=== PATIENT | male | born 1950 | race African-American/Black ===

== ENCOUNTER 2024-03-10 08:13 | Inpatient (IN) | payer MEDICARE, MEDICAID ==
[~2024-03-10] VITALS: Ht 177.8 cm; Wt 139.3 kg
[~2024-03-10 08:13] MED LIST: AMLO5TAB5 PO; ASPI-1406 PO; CALC-1042 PO; CHOL100046 PO; CLON-493 PO; DIVAL250 PO; FERR-63 PO; FOLI0.8T27 PO; FURO-152 PO; HYDR50TA40 PO; LACT10SO PO; METO-411 PO; METO1TAB24 PO; THIA100T13 PO; TOPUD PO
[2024-03-10 09:40] LABS: CHLORIDE 112 mEq/L (98-107); POTASSIUM 5.7 mEq/L (3.5-5.1); SODIUM 144 mEq/L (136-145)
[2024-03-10 09:41] LABS: CALCIUM 9.5 mg/dL (8.7-10.4); CARBON DIOXIDE 24 mEq/L (21-32)
[2024-03-10 09:46] LABS: CREATININE 2.7 mg/dL (0.6-1.3); GLUCOSE 100 mg/dL (70-105); UREA NITROGEN BLOOD 35 mg/dL (9-23)
[2024-03-10 09:47] LABS: HEMATOCRIT. 31.4 % (42.0-52.0); HEMOGLOBIN. 9.6 g/dL (14.0-18.0); MEAN CORPUSCULAR HEMOGLOBIN 28.2 pg (28.0-32.0); MEAN CORPUSCULAR HGB CONC 30.6 g/dL (31.0-37.0); MEAN CORPUSCULAR VOLUME 92.1 fL (80.0-94.0); MEAN PLATELET VOLUME 8.7 fl (7.4-10.4); PLATELET 122 x1000/uL (130-400); RED BLOOD CELL COUNT 3.41 mill/uL (4.7-6.1); RED CELL DISTRIBUTION WIDTH 18.8 % (11.6-14.6); WHITE BLOOD COUNT 4.1 x1000/uL (4.5-11.0)
[2024-03-10 09:55] LABS: TROPONIN I HIGH SENSITIVITY 1770 ng/L (3.0-53)
[2024-03-10 09:57] LABS: DIFFERENTIAL COMMENT 1
[2024-03-10] MEDS: CALCIUM CHLORIDE 1GM/10ML SYR IV ONE (10:11)
[2024-03-10] MEDS: SODIUM BICARBONATE 8.4% 50MEQ/50ML SYR IV ONE (10:19)
[2024-03-10 10:30] VITALS: PULSE 84; RESP 18; O2SAT 96
[2024-03-10] MEDS ORDERED: MAGNESIUM/ALUMINUM HYDROXIDE/SIMETHICONE 30ML UDC PO PRN (10:30)
[2024-03-10] MEDS ORDERED: CLONIDINE 0.1MG TABLET PO PRN (10:30)
[2024-03-10] MEDS ORDERED: ONDANSETRON HCL 4MG/2ML INJ IV PRN (10:30)
[2024-03-10] MEDS ORDERED: GUAIFENESIN 200MG/10ML SUGAR FREE UDC PO PRN (10:30)
[2024-03-10] MEDS ORDERED: ACETAMINOPHEN 325MG TABLET PO PRN (10:30)
[2024-03-10] MEDS ORDERED: IPRATROPIUM/ALBUTEROL 0.5-3(2.5)MG/3ML NEB HHN PRN (10:30)
[2024-03-10] MEDS: ALBUTEROL (0.083%) 2.5MG/3ML NEB HHN ONE (10:31)
[2024-03-10] MEDS ORDERED: PANTOPRAZOLE SODIUM 40 MG/VIAL IV SCH (11:00)
[2024-03-10 11:16] LABS: PHOSPHORUS 4.3 mg/dL (2.5-4.9)
[2024-03-10] MEDS: DEXTROSE 50% WATER 50ML SYRINGE IV ONE (11:17)
[2024-03-10] MEDS: INSULIN REGULAR (HUMULIN R) 1000UNITS/10ML VIAL IV ONE (11:23)
[2024-03-10 11:28] LABS: LACTIC ACID 2.1 mmol/L (0.4-2.0)
[2024-03-10 11:37] LABS: ANISOCYTOSIS 2+; NUCLEATED RED BLOOD CELLS 1 /100 WBC; PLATELET ESTIMATE NORMAL
[2024-03-10] MEDS: MORPHINE SULFATE 4 MG/ML INJ (FOR IV/IM USE) IV ONE (11:53)
[2024-03-10] MEDS: FUROSEMIDE 100MG/10ML VIAL IV STA (11:57)
[2024-03-10] MEDS: CEFTRIAXONE 1GM/50ML 50 ML IV SCH (12:11)
[2024-03-10] MEDS: ENOXAPARIN 80MG/0.8ML SYR SUBCUT ONE (12:11)
[2024-03-10 12:34] LABS: POTASSIUM 5.4 mEq/L (3.5-5.1)
[2024-03-10 12:44] LABS: BG BASE EXCESS -5.5 mmol/L (-2.0-3.0); BG CARBOXYHEMOGLOBIN 1.3 % (0.5-1.5); BG DEOXYHEMOGLOBIN 12.4 % (0.0-5.0); BG FRACTION INSPIRED OXYGEN 40; BG HCO3 ACT 22.4 mmol/L (21.0-28.0); BG METHEMOGLOBIN 0.3 % (0.5-1.5); BG OXYGEN SATURATION 87.4 % (94.0-98.0); BG PCO2 56.1 mmHg (35.0-48.0); BG PH 7.219 (7.350-7.450); BG SAMPLE SITE RIGHT RADIAL; BG VENT MODE NASAL CANNULA
[2024-03-10] MEDS: DOXYCYCLINE 100MG/100ML 100 ML IV SCH (13:04)
[2024-03-10] MEDS: IPRATROPIUM/ALBUTEROL 0.5-3(2.5)MG/3ML NEB HHN SCH (14:09)
[2024-03-10] MEDS: BUDESONIDE 0.5MG/2ML NEB HHN SCH (14:10)
[2024-03-10] MEDS: DEXT 5%/0.45% NACL 1000ML 1,000 ML IV ONE (14:19)
[2024-03-10 20:00] VITALS: BP 135/47; PULSE 50; RESP 20; TEMP 35.78064; O2SAT 92
[2024-03-11] VITALS (62 sets, daily range): BP systolic 60–156; BP diastolic 35–98; PULSE 44–86; RESP 12–28; TEMP 35.78064–37.0296; O2SAT 91–99
[2024-03-11] MEDS: FAMOTIDINE 20MG/2ML VIAL IV SCH (08:18)
[2024-03-11] MEDS: DOXYCYCLINE 100MG/100ML 100 ML IV SCH (08:29)
[2024-03-11 10:04] LABS: HEMATOCRIT. 32.6 % (42.0-52.0); HEMOGLOBIN. 9.7 g/dL (14.0-18.0); MEAN CORPUSCULAR HEMOGLOBIN 27.7 pg (28.0-32.0); MEAN CORPUSCULAR HGB CONC 29.8 g/dL (31.0-37.0); MEAN CORPUSCULAR VOLUME 92.8 fL (80.0-94.0); MEAN PLATELET VOLUME 9.1 fl (7.4-10.4); PLATELET 102 x1000/uL (130-400); RED BLOOD CELL COUNT 3.51 mill/uL (4.7-6.1); RED CELL DISTRIBUTION WIDTH 18.8 % (11.6-14.6)
[2024-03-11 10:09] LABS: CARBON DIOXIDE 17 mEq/L (21-32); CHLORIDE 113 mEq/L (98-107); POTASSIUM 4.1 mEq/L (3.5-5.1); SODIUM 145 mEq/L (136-145)
[2024-03-11 10:10] LABS: CALCIUM 9.9 mg/dL (8.7-10.4)
[2024-03-11 10:14] LABS: GLUCOSE 164 mg/dL (70-105); IRON 56 ug/dL (65-175)
[2024-03-11 10:15] LABS: LDL CHOLESTEROL 35 mg/dL (5-100); TRIGLYCERIDE 42 mg/dL (0-150); UREA NITROGEN BLOOD 38 mg/dL (9-23)
[2024-03-11 10:16] LABS: CHOLESTEROL 114 mg/dL (<200); HDL CHOLESTEROL 58 mg/dL (>55)
[2024-03-11 10:17] LABS: TOTAL IRON BINDING CAPACITY 497 ug/dl (250-425)
[2024-03-11 10:19] LABS: CREATININE 3.6 mg/dL (0.6-1.3); T4 FREE 1.29 ng/dL (0.89-1.76); THYROID STIMULATING HORMONE 1.58 uIU/mL (0.55-4.78)
[2024-03-11 10:24] LABS: TROPONIN I HIGH SENSITIVITY 1442 ng/L (3.0-53)
[2024-03-11] MEDS: LACTATED RINGERS 500 ML IV ONE (10:26)
[2024-03-11 10:29] LABS: DIFFERENTIAL COMMENT 1
[2024-03-11] MEDS ORDERED: CEFTRIAXONE 1GM/50ML 50 ML IV SCH (10:30)
[2024-03-11] MEDS ORDERED: SODIUM CHLORIDE 10% FOR INH 15ML NEB INH NR (11:00)
[2024-03-11 11:36] LABS: FOLIC ACID (FOLATE) SERUM 14.44 ng/mL (>5.38); VITAMIN B12 SERUM 1061 pg/mL (211-911)
[2024-03-11 11:37] LABS: FERRITIN 124 ng/mL (22-322)
[2024-03-11] MEDS: LACTATED RINGERS 1,000 ML IV SCH (12:13)
[2024-03-11] MEDS: MEROPENEM 1G/100ML 100 ML IV SCH (12:13)
[2024-03-11 12:31] LABS: LACTIC ACID 8.3 mmol/L (0.4-2.0)
[2024-03-11] MEDS ORDERED: SODIUM CHLORIDE 0.9% 1,000 ML IV ONE ×2 (12:35→12:45)
[2024-03-11 13:18] LABS: BG BASE EXCESS -13.7 mmol/L (-2.0-3.0); BG CARBOXYHEMOGLOBIN 0.2 % (0.5-1.5); BG DEOXYHEMOGLOBIN 3.7 % (0.0-5.0); BG FRACTION INSPIRED OXYGEN 40; BG HCO3 ACT 15.1 mmol/L (21.0-28.0); BG METHEMOGLOBIN 0.3 % (0.5-1.5); BG OXYGEN SATURATION 96.3 % (94.0-98.0); BG OXYHEMOGLOBIN 95.8 % (94.0-98.0); BG PCO2 47.4 mmHg (35.0-48.0); BG PH 7.122 (7.350-7.450); BG PO2 98.7 mmHg (83.0-108.0); BG SAMPLE SITE RIGHT RADIAL; BG TOTAL HEMOGLOBIN 10.7 g/dL (13.5-17.5); BG VENT MODE MASK - VENTI
[2024-03-11] MEDS: FUROSEMIDE 40MG/4ML VIAL IVP NR (13:59)
[2024-03-11] MEDS: SODIUM BICARBONATE 8.4% 50MEQ/50ML SYR IV NR (13:59)
[2024-03-11] MEDS: METHYLPREDNISOLONE SOD SUCC 125MG/2ML (ACT-O-VIAL) IV NR (13:59)
[2024-03-11] MEDS: NOREPINEPHRINE 32 MG in DEXT 5% WATER 218 ML IV PRN (14:00)
[2024-03-11] MEDS: VANCOMYCIN 1.5GM PMX (XELLIA) 300 ML IV NR (14:01)
[2024-03-11] MEDS: SODIUM BICARBONATE 150 MEQ in DEXTROSE 5% WATER 850 ML IV SCH (14:30)
[2024-03-11] MEDS ORDERED: AMIODARONE HCL 900 MG in DEXT 5% WATER 482 ML IV SCH (15:30)
[2024-03-11] MEDS: AMIODARONE 150MG/100ML D5W 100 ML IV NR (15:41)
[2024-03-11] MEDS: AMIODARONE 360MG/200ML 200 ML IV PRN (16:00)
[2024-03-11] MEDS: ACETYLCYSTEINE 200MG/ML 20% VIAL 4ML INH SCH (16:02)
[2024-03-11 16:11] LABS: ANISOCYTOSIS 1+; NUCLEATED RED BLOOD CELLS 1 /100 WBC; PLATELET ESTIMATE DECREASED
[2024-03-11] MEDS: MAGNESIUM 2 G PREMIX 50 ML IV NR (18:13)
[2024-03-11] MEDS: PROPOFOL 10MG/ML 100ML 100 ML IV SCH (18:14)
[2024-03-11 18:56] LABS: INR 1.1; PROTHROMBIN TIME 11.7 sec (9.6-11.0)
[2024-03-11] MEDS: HEPARIN 5000 UNITS/ML VIAL IV NR (23:41)
[2024-03-11] MEDS: HEPARIN 25,000 UNITS PREMIX 250 ML IV PRN (23:48)
[2024-03-12] VITALS (89 sets, daily range): BP systolic 63–149; BP diastolic 41–73; PULSE 53–113; RESP 13–39; TEMP 30.16908–37.28076; O2SAT 92–100
[2024-03-12 00:16] LABS: HEMATOCRIT. 33.7 % (42.0-52.0); HEMOGLOBIN. 10.4 g/dL (14.0-18.0); MEAN CORPUSCULAR HEMOGLOBIN 28.3 pg (28.0-32.0); MEAN CORPUSCULAR VOLUME 91.4 fL (80.0-94.0); MEAN PLATELET VOLUME 8.6 fl (7.4-10.4); PLATELET 104 x1000/uL (130-400); RED BLOOD CELL COUNT 3.69 mill/uL (4.7-6.1); RED CELL DISTRIBUTION WIDTH 19.2 % (11.6-14.6); WHITE BLOOD COUNT 3.9 x1000/uL (4.5-11.0)
[2024-03-12 00:20] LABS: DIFFERENTIAL COMMENT 1
[2024-03-12 01:45] LABS: INR 1.1; PROTHROMBIN TIME 12.4 sec (9.6-11.0)
[2024-03-12 02:29] LABS: PARTIAL THROMBOPLASTIN TIME > 200.0 sec (23.4-31.0)
[2024-03-12] MEDS ORDERED: HEPARIN 5000 UNITS/ML VIAL IV PRN ×2 (03:00)
[2024-03-12 04:50] LABS: BG BASE EXCESS -7.4 mmol/L (-2.0-3.0); BG CARBOXYHEMOGLOBIN 0.3 % (0.5-1.5); BG DEOXYHEMOGLOBIN 2.4 % (0.0-5.0); BG FRACTION INSPIRED OXYGEN 80; BG HCO3 ACT 19.4 mmol/L (21.0-28.0); BG METHEMOGLOBIN 0.3 % (0.5-1.5); BG OXYGEN SATURATION 97.6 % (94.0-98.0); BG PCO2 44.3 mmHg (35.0-48.0); BG PO2 98.4 mmHg (83.0-108.0); BG SAMPLE SITE RIGHT RADIAL; BG TOTAL RESPIRATORY RATE 16 b/min; BG VENT MODE VENT - AC
[2024-03-12 05:15] LABS: NUCLEATED RED BLOOD CELLS 3 /100 WBC
[2024-03-12 05:16] LABS: PLATELET ESTIMATE SLIGHTL
[2024-03-12 06:15] LABS: LACTIC ACID 4.7 mmol/L (0.4-2.0)
[2024-03-12 06:17] LABS: HEMATOCRIT. 32.2 % (42.0-52.0); HEMOGLOBIN. 10.3 g/dL (14.0-18.0); MEAN CORPUSCULAR HGB CONC 31.8 g/dL (31.0-37.0); MEAN CORPUSCULAR VOLUME 91.1 fL (80.0-94.0); PLATELET 113 x1000/uL (130-400); RED BLOOD CELL COUNT 3.54 mill/uL (4.7-6.1); RED CELL DISTRIBUTION WIDTH 19.3 % (11.6-14.6)
[2024-03-12 06:28] LABS: CALCIUM 9.3 mg/dL (8.7-10.4)
[2024-03-12 06:32] LABS: DIFFERENTIAL COMMENT 1
[2024-03-12 06:33] LABS: CREATININE 3.8 mg/dL (0.6-1.3)
[2024-03-12] MEDS: METHYLPREDNISOLONE SOD SUCC 125MG/2ML (ACT-O-VIAL) IV SCH (06:45)
[2024-03-12 08:29] LABS: PHOSPHORUS 4.9 mg/dL (2.5-4.9)
[2024-03-12] MEDS: SODIUM CHLORIDE 0.9% 1,000 ML IV SCH (10:00)
[2024-03-12] MEDS: DOPAMINE 400MG/250ML PREMIX 250 ML IV PRN (11:25)
[2024-03-12 13:24] LABS: CLARITY URINE TURBID (CLEAR); COLOR URINE DARK YELLOW (YELLOW); GLUCOSE URINE NEGATIVE (NEGATIVE); KETONES URINE TRACE (NEGATIVE); LEUKOCYTE ESTERASE URINE NEGATIVE (NEGATIVE); NITRITE URINE NEGATIVE (NEGATIVE); OCCULT BLOOD URINE 3+ (NEGATIVE); PROTEIN URINE 2+ (NEGATIVE); SPECIFIC GRAVITY URINE 1.025 (1.005-1.030)
[2024-03-12 13:45] LABS: RBC URINE TNTC /hpf (0-2); SQUAMOUS EPITHELIAL CELL URINE 1+ /lpf (RARE/1+)
[2024-03-12 13:46] LABS: BACTERIA URINE 2+; WBC URINE 0-2 /hpf (0-2)
[2024-03-12] MEDS: VANCOMYCIN 750MG PMX (XELLIA) 150 ML IV SCH (16:30)
[2024-03-12] MEDS ORDERED: PHENYLEPHRINE 50MG/250ML PMX 250 ML IV PRN (21:00)
[2024-03-12] MEDS ORDERED: FENTANYL 2500MCG/250ML PMX 250 ML IV PRN (21:30)
[2024-03-12 21:43] LABS: BG BASE EXCESS -7.4 mmol/L (-2.0-3.0); BG CARBOXYHEMOGLOBIN 0.3 % (0.5-1.5); BG DEOXYHEMOGLOBIN 25.3 % (0.0-5.0); BG HCO3 ACT 20.2 mmol/L (21.0-28.0); BG METHEMOGLOBIN 0.5 % (0.5-1.5); BG OXYGEN SATURATION 74.5 % (94.0-98.0); BG OXYHEMOGLOBIN 73.9 % (94.0-98.0); BG PCO2 51.7 mmHg (35.0-48.0); BG PO2 42.8 mmHg (83.0-108.0); BG SAMPLE SITE ALINE; BG TOTAL HEMOGLOBIN 9.1 g/dL (13.5-17.5)
[2024-03-12] MEDS ORDERED: METHYLPREDNISOLONE SOD SUCC 40MG/ML (ACT-O-VIAL) IV SCH (22:00)
[2024-03-12] MEDS: HYDROCORTISONE SOD SUCCINATE 100 MG/2 ML VIAL IV SCH (22:06)
[2024-03-12] MEDS: PROPOFOL 10MG/ML 100ML 100 ML IV PRN (22:07)
[2024-03-12] MEDS: FENTANYL CITRATE 2,500 MCG in SODIUM CHLORIDE 0.9% 200 ML IV PRN (22:38)
[2024-03-12] MEDS: PHENYLEPHRINE 50 MG in DEXTROSE 5% WATER 250 ML IV PRN (22:38)
[2024-03-12 23:56] LABS: CHLORIDE 104 mEq/L (98-107); SODIUM 136 mEq/L (136-145)
[2024-03-12 23:57] LABS: CALCIUM 8.2 mg/dL (8.7-10.4); CARBON DIOXIDE 22 mEq/L (21-32)
[2024-03-12 23:59] LABS: HEMATOCRIT. 26.3 % (42.0-52.0); HEMOGLOBIN. 8.4 g/dL (14.0-18.0); MEAN CORPUSCULAR HEMOGLOBIN 28.5 pg (28.0-32.0); MEAN CORPUSCULAR HGB CONC 31.9 g/dL (31.0-37.0); MEAN CORPUSCULAR VOLUME 89.3 fL (80.0-94.0); MEAN PLATELET VOLUME 9.6 fl (7.4-10.4); PLATELET 112 x1000/uL (130-400); RED BLOOD CELL COUNT 2.94 mill/uL (4.7-6.1); RED CELL DISTRIBUTION WIDTH 18.8 % (11.6-14.6); WHITE BLOOD COUNT 13.3 x1000/uL (4.5-11.0)
[2024-03-13] VITALS (97 sets, daily range): BP systolic 71–171; BP diastolic 46–78; PULSE 63–127; RESP 13–32; TEMP 36.22512–37.7808; O2SAT 92–100
[2024-03-13] MEDS: EPINEPHRINE 10 MG in SODIUM CHLORIDE 0.9% 240 ML IV PRN
[2024-03-13] MEDS: VASOPRESSIN 20 UNIT in SODIUM CHLORIDE 0.9% 99 ML IV PRN
[2024-03-13 00:02] LABS: CREATININE 4.8 mg/dL (0.6-1.3); UREA NITROGEN BLOOD 57 mg/dL (9-23)
[2024-03-13 00:04] LABS: ALANINE AMINOTRANSFERASE 41 IU/L (10-49); ALBUMIN 3.1 g/dL (3.2-4.8); ASPARTATE AMINOTRANSFERASE 36 IU/L (<34); BILIRUBIN TOTAL 0.3 mg/dL (0.1-1.0)
[2024-03-13 00:19] LABS: DIFFERENTIAL COMMENT 1
[2024-03-13 00:33] LABS: POTASSIUM 6.6 mEq/L (3.5-5.1)
[2024-03-13 00:35] LABS: GLUCOSE 146 mg/dL (70-105)
[2024-03-13 00:40] LABS: PROTEIN TOTAL 5.9 g/dL (6.0-8.3)
[2024-03-13 01:25] LABS: BG BASE EXCESS -9.2 mmol/L (-2.0-3.0); BG CARBOXYHEMOGLOBIN 0.6 % (0.5-1.5); BG DEOXYHEMOGLOBIN 10.1 % (0.0-5.0); BG FRACTION INSPIRED OXYGEN 60; BG HCO3 ACT 19.8 mmol/L (21.0-28.0); BG METHEMOGLOBIN 0.4 % (0.5-1.5); BG OXYGEN SATURATION 89.8 % (94.0-98.0); BG OXYHEMOGLOBIN 88.9 % (94.0-98.0); BG PCO2 62.2 mmHg (35.0-48.0); BG PH 7.121 (7.350-7.450); BG SAMPLE SITE ALINE; BG TOTAL HEMOGLOBIN 7.9 g/dL (13.5-17.5); BG VENT MODE VENT - AC
[2024-03-13] MEDS: FUROSEMIDE 100MG/10ML VIAL IVP NR (02:02)
[2024-03-13] MEDS: ROCURONIUM BROMIDE 10MG/ML VIAL 5ML IV NR (02:02)
[2024-03-13] MEDS: SODIUM BICARBONATE 8.4% 50MEQ/50ML SYR IV NR ×2 (02:02→02:03)
[2024-03-13] MEDS: INSULIN REGULAR (HUMULIN R) 1000UNITS/10ML VIAL IV NR (02:04)
[2024-03-13] MEDS: DEXTROSE 50% WATER 50ML SYRINGE IV NR (02:25)
[2024-03-13] MEDS: SODIUM POLYSTYRENE SULFONATE 15 G/60 ML BOT PO NR (02:26)
[2024-03-13] MEDS ORDERED: DEXTROSE 50% WATER 50ML SYRINGE IV PRN (02:45)
[2024-03-13] MEDS: INSULIN LISPRO 100 UNITS/ML SUBCUT SCH ×2 (03:01→12:00)
[2024-03-13 06:08] LABS: CHLORIDE 104 mEq/L (98-107); POTASSIUM 5.2 mEq/L (3.5-5.1); SODIUM 139 mEq/L (136-145)
[2024-03-13 06:09] LABS: CALCIUM 7.8 mg/dL (8.7-10.4); CARBON DIOXIDE 19 mEq/L (21-32)
[2024-03-13 06:14] LABS: GLUCOSE 132 mg/dL (70-105); TRIGLYCERIDE 292 mg/dL (0-150); UREA NITROGEN BLOOD 61 mg/dL (9-23)
[2024-03-13 06:15] LABS: BG BASE EXCESS -7.2 mmol/L (-2.0-3.0); BG CARBOXYHEMOGLOBIN 0.3 % (0.5-1.5); BG DEOXYHEMOGLOBIN 6.6 % (0.0-5.0); BG FRACTION INSPIRED OXYGEN 60; BG HCO3 ACT 18.6 mmol/L (21.0-28.0); BG METHEMOGLOBIN 0.3 % (0.5-1.5); BG OXYGEN SATURATION 93.4 % (94.0-98.0); BG OXYHEMOGLOBIN 92.8 % (94.0-98.0); BG PCO2 38.7 mmHg (35.0-48.0); BG PO2 65.4 mmHg (83.0-108.0); BG SAMPLE SITE ALINE; BG TOTAL HEMOGLOBIN 9.9 g/dL (13.5-17.5); BG VENT MODE VENT - AC
[2024-03-13 06:16] LABS: ALANINE AMINOTRANSFERASE 35 IU/L (10-49); ALBUMIN 2.9 g/dL (3.2-4.8); ASPARTATE AMINOTRANSFERASE 41 IU/L (<34); BILIRUBIN TOTAL 0.2 mg/dL (0.1-1.0)
[2024-03-13 06:17] LABS: PROTEIN TOTAL 5.4 g/dL (6.0-8.3)
[2024-03-13] MEDS: BLOOD SUGAR DIAGNOSTIC STRIP TEST SCH (06:23)
[2024-03-13] MEDS ORDERED: SODIUM CHLORIDE 0.9% 1,000 ML IV SCH (06:45)
[2024-03-13] MEDS: DOPAMINE 800MG PREMIX (DOUBLE) 250 ML IV PRN (10:49)
[2024-03-13] MEDS ORDERED: LIDOCAINE HCL 1% 10 MG/ML 10ML VIAL ONE (11:33)
[2024-03-13 12:16] LABS: HEPATITIS B SURFACE ANTIGEN NEGATIVE (Negative)
[2024-03-13 12:36] LABS: HEPATITIS A AB IGM NEGATIVE (Negative)
[2024-03-13 12:37] LABS: HEPATITIS B CORE AB IGM NEGATIVE (Negative); HEPATITIS C AB NON REACTIVE (Neg) (Negative)
[2024-03-13] MEDS: DEXT 5%/0.45% NACL 1000ML 1,000 ML IV SCH (14:10)
[2024-03-13 16:08] LABS: PLATELET ESTIMATE SLIGHTLY DECREASED
[2024-03-13 18:11] LABS: ANISOCYTOSIS 1+; PLATELET ESTIMATE DECREASED
[2024-03-13 18:12] LABS: HYPOCHROMASIA 1+
[2024-03-13] MEDS ORDERED: ATROPINE SULFATE 1MG/10ML SYR IV PRN (19:45)
[2024-03-13] MEDS: PROPOFOL 10MG/ML 100ML 100 ML IV PRN (21:23)
[2024-03-13] MEDS: MEROPENEM 500MG/50ML IV SCH (21:41)
[2024-03-13] MEDS: PANTOPRAZOLE SODIUM 40 MG/VIAL IV SCH (21:41)
[2024-03-14] VITALS (100 sets, daily range): BP systolic 110–136; BP diastolic 66–84; PULSE 53–110; RESP 8–37; TEMP 35.61396–37.44744; O2SAT 95–100
[2024-03-14 06:01] LABS: BG BASE EXCESS -3.8 mmol/L (-2.0-3.0); BG CARBOXYHEMOGLOBIN 0.3 % (0.5-1.5); BG DEOXYHEMOGLOBIN 8.1 % (0.0-5.0); BG FRACTION INSPIRED OXYGEN 60; BG HCO3 ACT 19.6 mmol/L (21.0-28.0); BG METHEMOGLOBIN 0.3 % (0.5-1.5); BG OXYGEN SATURATION 91.9 % (94.0-98.0); BG OXYHEMOGLOBIN 91.3 % (94.0-98.0); BG PCO2 28.9 mmHg (35.0-48.0); BG PH 7.449 (7.350-7.450); BG PO2 62.7 mmHg (83.0-108.0); BG SAMPLE SITE ALINE; BG TOTAL HEMOGLOBIN 7.6 g/dL (13.5-17.5); BG VENT MODE VENT - AC
[2024-03-14 06:08] LABS: MEAN CORPUSCULAR HEMOGLOBIN 28.4 pg (28.0-32.0); MEAN CORPUSCULAR HGB CONC 32.9 g/dL (31.0-37.0); MEAN CORPUSCULAR VOLUME 86.5 fL (80.0-94.0); MEAN PLATELET VOLUME 9.3 fl (7.4-10.4); PLATELET 76 x1000/uL (130-400); RED BLOOD CELL COUNT 2.35 mill/uL (4.7-6.1); WHITE BLOOD COUNT 12.4 x1000/uL (4.5-11.0)
[2024-03-14 06:10] LABS: CARBON DIOXIDE 22 mEq/L (21-32); CHLORIDE 100 mEq/L (98-107); POTASSIUM 5.8 mEq/L (3.5-5.1); SODIUM 132 mEq/L (136-145)
[2024-03-14 06:16] LABS: CREATININE 4.8 mg/dL (0.6-1.3); GLUCOSE 181 mg/dL (70-105); TRIGLYCERIDE 161 mg/dL (0-150); UREA NITROGEN BLOOD 61 mg/dL (9-23)
[2024-03-14 06:17] LABS: ALANINE AMINOTRANSFERASE 31 IU/L (10-49)
[2024-03-14 06:18] LABS: ALBUMIN 2.9 g/dL (3.2-4.8); ASPARTATE AMINOTRANSFERASE 43 IU/L (<34); BILIRUBIN TOTAL 0.4 mg/dL (0.1-1.0); PHOSPHORUS 5.6 mg/dL (2.5-4.9); PROTEIN TOTAL 5.3 g/dL (6.0-8.3)
[2024-03-14 06:48] LABS: HEMOGLOBIN. 6.7 g/dL (14.0-18.0)
[2024-03-14 06:50] LABS: DIFFERENTIAL COMMENT 1; HEMATOCRIT. 20.3 % (42.0-52.0)
[2024-03-14] MEDS: LANTHANUM CARBONATE 500MG CHEW TABLET PO SCH (07:06)
[2024-03-14 09:41] LABS: POTASSIUM 4.1 mEq/L (3.5-5.1)
[2024-03-14 10:18] LABS: CREATININE 3.2 mg/dL (0.6-1.3)
[2024-03-14 11:16] LABS: BG BASE EXCESS 0.5 mmol/L (-2.0-3.0); BG CARBOXYHEMOGLOBIN 0.2 % (0.5-1.5); BG DEOXYHEMOGLOBIN 8.7 % (0.0-5.0); BG FRACTION INSPIRED OXYGEN 60; BG HCO3 ACT 24.1 mmol/L (21.0-28.0); BG METHEMOGLOBIN 0.3 % (0.5-1.5); BG OXYGEN SATURATION 91.3 % (94.0-98.0); BG OXYHEMOGLOBIN 90.8 % (94.0-98.0); BG PCO2 33.9 mmHg (35.0-48.0); BG PH 7.469 (7.350-7.450); BG PO2 59.5 mmHg (83.0-108.0); BG SAMPLE SITE ALINE; BG TOTAL HEMOGLOBIN 7.2 g/dL (13.5-17.5); BG TOTAL RESPIRATORY RATE 24 b/min; BG VENT MODE VENT - AC
[2024-03-14] MEDS: PHENYLEPHRINE 100 MG in DEXT 5% WATER 250 ML IV PRN (11:20)
[2024-03-14 13:46] LABS: NUCLEATED RED BLOOD CELLS 2 /100 WBC
[2024-03-14 13:47] LABS: ANISOCYTOSIS 1+; PLATELET ESTIMATE DECREASED
[2024-03-14] MEDS: DEXAMETHASONE 4MG/ML 1ML VIAL IV NR (14:45)
[2024-03-14] MEDS ORDERED: MORPHINE SULFATE 4 MG/ML INJ (FOR IV/IM USE) IV PRN (15:45)
[2024-03-14] MEDS ORDERED: NALOXONE HCL 0.4MG/ML VIAL IV PRN (15:45)
[2024-03-14 18:01] LABS: INR 0.9; PROTHROMBIN TIME 10.5 sec (9.6-11.0)
[2024-03-14] MEDS: LEVETIRACETAM 500MG PREMIX 100ML IV SCH (20:36)
[2024-03-14] MEDS ORDERED: LEVETIRACETAM 500MG in NACL 100ML PREMIX IV SCH (21:00)
[2024-03-14] MEDS: PROPOFOL 10MG/ML 100ML 100 ML IV PRN (21:15)
[2024-03-14] MEDS ORDERED: CEFAZOLIN 1,000 MG in DEXTROSE 5% WATER 50 ML IV SCH (21:30)
[2024-03-14] MEDS ORDERED: CEFAZOLIN SODIUM 1000MG/VIAL IV SCH (22:00)
[2024-03-14 22:23] LABS: HEMATOCRIT 22.2 % (42.0-52.0); HEMOGLOBIN 7.2 g/dL (14.0-18.0)
[2024-03-15] VITALS (105 sets, daily range): PULSE 46–145; RESP 16–23; TEMP 35.5584–36.83628; O2SAT 87–100
[2024-03-15 05:51] LABS: BASOPHILS % 0.3 % (0.0-2.0); EOSINOPHILS % 0.4 % (0.0-5.0); HEMATOCRIT. 23.5 % (42.0-52.0); HEMOGLOBIN. 7.7 g/dL (14.0-18.0); LYMPHOCYTES % 7.9 % (20.0-50.0); MEAN CORPUSCULAR HEMOGLOBIN 28.8 pg (28.0-32.0); MEAN CORPUSCULAR HGB CONC 32.8 g/dL (31.0-37.0); MONOCYTES % 5.2 % (2.0-8.0); NEUTROPHILS % 86.2 % (40.0-76.0); RED BLOOD CELL COUNT 2.67 mill/uL (4.7-6.1); RED CELL DISTRIBUTION WIDTH 17.9 % (11.6-14.6)
[2024-03-15 06:09] LABS: DIFFERENTIAL COMMENT 1
[2024-03-15 06:24] LABS: CHLORIDE 102 mEq/L (98-107); POTASSIUM 5.1 mEq/L (3.5-5.1); SODIUM 135 mEq/L (136-145)
[2024-03-15 06:25] LABS: CALCIUM 8.3 mg/dL (8.7-10.4); CARBON DIOXIDE 23 mEq/L (21-32)
[2024-03-15 06:30] LABS: GLUCOSE 149 mg/dL (70-105)
[2024-03-15 06:31] LABS: TRIGLYCERIDE 112 mg/dL (0-150); UREA NITROGEN BLOOD 59 mg/dL (9-23)
[2024-03-15 06:32] LABS: ALANINE AMINOTRANSFERASE 28 IU/L (10-49); ALBUMIN 2.9 g/dL (3.2-4.8); ASPARTATE AMINOTRANSFERASE 35 IU/L (<34)
[2024-03-15 06:33] LABS: BILIRUBIN TOTAL 0.5 mg/dL (0.1-1.0); PHOSPHORUS 6.3 mg/dL (2.5-4.9); PROTEIN TOTAL 5.4 g/dL (6.0-8.3)
[2024-03-15 07:10] LABS: CREATININE 4.3 mg/dL (0.6-1.3)
[2024-03-15] MEDS ORDERED: LIDOCAINE HCL 1% 10 MG/ML 10ML VIAL ONE (07:25)
[2024-03-15 09:01] LABS: BG BASE EXCESS -4.2 mmol/L (-2.0-3.0); BG DEOXYHEMOGLOBIN 12.4 % (0.0-5.0); BG FRACTION INSPIRED OXYGEN 60; BG HCO3 ACT 20.3 mmol/L (21.0-28.0); BG OXYGEN SATURATION 87.3 % (94.0-98.0); BG OXYHEMOGLOBIN 85.6 % (94.0-98.0); BG PH 7.393 (7.350-7.450); BG PO2 54.8 mmHg (83.0-108.0); BG SAMPLE SITE ALINE; BG TOTAL HEMOGLOBIN 7.6 g/dL (13.5-17.5); BG VENT MODE VENT - AC
[2024-03-15 09:18] LABS: MEAN PLATELET VOLUME 9.1 fl (7.4-10.4); PLATELET 79 x1000/uL (130-400)
[2024-03-15] MEDS: NICARDIPINE 100 MG in SODIUM CHLORIDE 0.9% 60 ML IV PRN (10:56)
[2024-03-15 14:03] LABS: BG BASE EXCESS -4.8 mmol/L (-2.0-3.0); BG CARBOXYHEMOGLOBIN 0.4 % (0.5-1.5); BG DEOXYHEMOGLOBIN 8.4 % (0.0-5.0); BG FRACTION INSPIRED OXYGEN 100; BG HCO3 ACT 20.3 mmol/L (21.0-28.0); BG METHEMOGLOBIN 0.3 % (0.5-1.5); BG OXYGEN SATURATION 91.5 % (94.0-98.0); BG OXYHEMOGLOBIN 90.9 % (94.0-98.0); BG PCO2 37.6 mmHg (35.0-48.0); BG PO2 67.3 mmHg (83.0-108.0); BG SAMPLE SITE ALINE; BG TOTAL HEMOGLOBIN 9.1 g/dL (13.5-17.5); BG VENT MODE VENT - AC
[2024-03-15] MEDS ORDERED: PROPOFOL 10MG/ML 100ML 100 ML IV PRN (21:30)
[2024-03-16] VITALS (102 sets, daily range): BP systolic 116–141; BP diastolic 55–67; PULSE 42–79; RESP 0–23; TEMP 34.66944–36.50292; O2SAT 93–100
[2024-03-16 06:04] LABS: BASOPHILS % 0.2 % (0.0-2.0); HEMATOCRIT. 25.5 % (42.0-52.0); HEMOGLOBIN. 8.5 g/dL (14.0-18.0); LYMPHOCYTES % 9.8 % (20.0-50.0); MEAN CORPUSCULAR HGB CONC 33.2 g/dL (31.0-37.0); MEAN CORPUSCULAR VOLUME 87.4 fL (80.0-94.0); MEAN PLATELET VOLUME 8.4 fl (7.4-10.4); MONOCYTES % 5.2 % (2.0-8.0); NEUTROPHILS % 84.8 % (40.0-76.0); PLATELET 99 x1000/uL (130-400); RED BLOOD CELL COUNT 2.91 mill/uL (4.7-6.1); RED CELL DISTRIBUTION WIDTH 17.3 % (11.6-14.6); WHITE BLOOD COUNT 8.5 x1000/uL (4.5-11.0)
[2024-03-16 06:15] LABS: CHLORIDE 103 mEq/L (98-107); POTASSIUM 4.3 mEq/L (3.5-5.1); SODIUM 136 mEq/L (136-145)
[2024-03-16 06:17] LABS: CARBON DIOXIDE 21 mEq/L (21-32)
[2024-03-16 06:19] LABS: CALCIUM 8.6 mg/dL (8.7-10.4)
[2024-03-16 06:23] LABS: CREATININE 4.6 mg/dL (0.6-1.3); GLUCOSE 174 mg/dL (70-105)
[2024-03-16 06:24] LABS: ALBUMIN 3.2 g/dL (3.2-4.8); TRIGLYCERIDE 58 mg/dL (0-150); UREA NITROGEN BLOOD 74 mg/dL (9-23)
[2024-03-16 06:25] LABS: ALANINE AMINOTRANSFERASE 28 IU/L (10-49)
[2024-03-16 06:26] LABS: ASPARTATE AMINOTRANSFERASE 27 IU/L (<34); BILIRUBIN TOTAL 0.6 mg/dL (0.1-1.0); PHOSPHORUS 6.6 mg/dL (2.5-4.9); PROTEIN TOTAL 5.6 g/dL (6.0-8.3)
[2024-03-16 06:31] LABS: DIFFERENTIAL COMMENT 1
[2024-03-16 09:44] LABS: BG BASE EXCESS -4.6 mmol/L (-2.0-3.0); BG CARBOXYHEMOGLOBIN 0.3 % (0.5-1.5); BG FRACTION INSPIRED OXYGEN 80; BG HCO3 ACT 19.9 mmol/L (21.0-28.0); BG METHEMOGLOBIN 0.3 % (0.5-1.5); BG OXYGEN SATURATION 90.9 % (94.0-98.0); BG OXYHEMOGLOBIN 90.4 % (94.0-98.0); BG PCO2 34.1 mmHg (35.0-48.0); BG PH 7.383 (7.350-7.450); BG PO2 63.8 mmHg (83.0-108.0); BG SAMPLE SITE ALINE; BG TOTAL HEMOGLOBIN 8.8 g/dL (13.5-17.5); BG VENT MODE VENT - AC
[2024-03-16] MEDS: LORAZEPAM 2MG/ML INJ IV NR (18:38)
[2024-03-16] MEDS: LEVETIRACETAM 1000MG PREMIX 100 ML IV SCH (20:40)
[2024-03-16] MEDS ORDERED: LEVETIRACETAM 1,000MG in NACL 100ML PREMIX IV SCH (21:00)
[2024-03-17] VITALS (103 sets, daily range): BP systolic 101–155; BP diastolic 46–76; PULSE 50–73; RESP 0–23; TEMP 36.61404–36.89184; O2SAT 95–100
[2024-03-17 05:46] LABS: BASOPHILS % 0.2 % (0.0-2.0); HEMATOCRIT. 23.9 % (42.0-52.0); HEMOGLOBIN. 7.8 g/dL (14.0-18.0); LYMPHOCYTES % 8.6 % (20.0-50.0); MEAN CORPUSCULAR HEMOGLOBIN 28.4 pg (28.0-32.0); MEAN CORPUSCULAR HGB CONC 32.8 g/dL (31.0-37.0); MEAN CORPUSCULAR VOLUME 86.6 fL (80.0-94.0); MEAN PLATELET VOLUME 8.4 fl (7.4-10.4); MONOCYTES % 5.8 % (2.0-8.0); NEUTROPHILS % 85.4 % (40.0-76.0); PLATELET 111 x1000/uL (130-400); RED BLOOD CELL COUNT 2.76 mill/uL (4.7-6.1); RED CELL DISTRIBUTION WIDTH 17.2 % (11.6-14.6); WHITE BLOOD COUNT 9.8 x1000/uL (4.5-11.0)
[2024-03-17 05:47] LABS: POTASSIUM 4.5 mEq/L (3.5-5.1)
[2024-03-17 05:48] LABS: CALCIUM 8.3 mg/dL (8.7-10.4)
[2024-03-17 05:53] LABS: CREATININE 3.6 mg/dL (0.6-1.3)
[2024-03-17 06:28] LABS: DIFFERENTIAL COMMENT 1
[2024-03-18] VITALS (105 sets, daily range): BP systolic 80–152; BP diastolic 49–77; PULSE 47–69; RESP 16–20; TEMP 36.33624–36.78072; O2SAT 97–100
[2024-03-18 00:21] LABS: BG BASE EXCESS -3.4 mmol/L (-2.0-3.0); BG CARBOXYHEMOGLOBIN 0.9 % (0.5-1.5); BG DEOXYHEMOGLOBIN 1.2 % (0.0-5.0); BG FRACTION INSPIRED OXYGEN 80; BG HCO3 ACT 21.2 mmol/L (21.0-28.0); BG METHEMOGLOBIN 0.2 % (0.5-1.5); BG OXYGEN SATURATION 98.8 % (94.0-98.0); BG OXYHEMOGLOBIN 97.7 % (94.0-98.0); BG PCO2 36.8 mmHg (35.0-48.0); BG PH 7.379 (7.350-7.450); BG PO2 138.9 mmHg (83.0-108.0); BG SAMPLE SITE ALINE; BG TOTAL HEMOGLOBIN 13.5 g/dL (13.5-17.5); BG VENT MODE VENT - AC
[2024-03-18 06:34] LABS: HEMATOCRIT. 21.9 % (42.0-52.0); HEMOGLOBIN. 7.4 g/dL (14.0-18.0); MEAN CORPUSCULAR HEMOGLOBIN 28.9 pg (28.0-32.0); MEAN CORPUSCULAR HGB CONC 33.7 g/dL (31.0-37.0); MEAN CORPUSCULAR VOLUME 85.8 fL (80.0-94.0); MEAN PLATELET VOLUME 8.4 fl (7.4-10.4); PLATELET 113 x1000/uL (130-400); RED BLOOD CELL COUNT 2.55 mill/uL (4.7-6.1); RED CELL DISTRIBUTION WIDTH 16.5 % (11.6-14.6); WHITE BLOOD COUNT 10.8 x1000/uL (4.5-11.0)
[2024-03-18 06:55] LABS: CHLORIDE 103 mEq/L (98-107); POTASSIUM 4.7 mEq/L (3.5-5.1); SODIUM 136 mEq/L (136-145)
[2024-03-18 06:56] LABS: CALCIUM 7.9 mg/dL (8.7-10.4); CARBON DIOXIDE 21 mEq/L (21-32)
[2024-03-18 07:01] LABS: GLUCOSE 117 mg/dL (70-105); UREA NITROGEN BLOOD 84 mg/dL (9-23)
[2024-03-18 07:03] LABS: PHOSPHORUS 6.6 mg/dL (2.5-4.9)
[2024-03-18 07:14] LABS: CREATININE 4.7 mg/dL (0.6-1.3)
[2024-03-18 07:34] LABS: DIFFERENTIAL COMMENT 1
[2024-03-18] MEDS: MORPHINE SULFATE 4 MG/ML INJ (FOR IV/IM USE) IV PRN (08:24)
[2024-03-18 16:43] LABS: ANISOCYTOSIS 1+; PLATELET ESTIMATE DECREASED
[2024-03-19] VITALS (111 sets, daily range): BP systolic 99–164; BP diastolic 39–88; PULSE 43–70; RESP 20; TEMP 35.8362–36.6696; O2SAT 98–100
[2024-03-19 06:02] LABS: DIFFERENTIAL COMMENT 0; EOSINOPHILS % 0.1 % (0.0-5.0); LYMPHOCYTES % 9.8 % (20.0-50.0); MEAN CORPUSCULAR HEMOGLOBIN 28.6 pg (28.0-32.0); MEAN CORPUSCULAR HGB CONC 33.3 g/dL (31.0-37.0); MEAN CORPUSCULAR VOLUME 85.7 fL (80.0-94.0); MEAN PLATELET VOLUME 8.4 fl (7.4-10.4); MONOCYTES % 9.4 % (2.0-8.0); NEUTROPHILS % 80.7 % (40.0-76.0); PLATELET 120 x1000/uL (130-400); RED BLOOD CELL COUNT 2.38 mill/uL (4.7-6.1); RED CELL DISTRIBUTION WIDTH 16.4 % (11.6-14.6); WHITE BLOOD COUNT 6.8 x1000/uL (4.5-11.0)
[2024-03-19 06:15] LABS: POTASSIUM 4.2 mEq/L (3.5-5.1)
[2024-03-19 06:16] LABS: CALCIUM 7.8 mg/dL (8.7-10.4)
[2024-03-19 06:44] LABS: HEMOGLOBIN. 6.8 g/dL (14.0-18.0)
[2024-03-19 06:45] LABS: HEMATOCRIT. 20.4 % (42.0-52.0)
[2024-03-19 20:41] LABS: HEMATOCRIT 25.1 % (42.0-52.0); HEMOGLOBIN 8.4 g/dL (14.0-18.0)
[2024-03-20] VITALS (76 sets, daily range): BP systolic 93–173; BP diastolic 40–73; PULSE 43–83; RESP 0–20; TEMP 34.61388–38.3364; O2SAT 95–100
[2024-03-20] MEDS ORDERED: LACTATED RINGERS 1,000 ML IV SCH (00:45)
[2024-03-20 06:53] LABS: CALCIUM 8.2 mg/dL (8.7-10.4); POTASSIUM 3.8 mEq/L (3.5-5.1)
[2024-03-20 06:55] LABS: HEMATOCRIT. 24.9 % (42.0-52.0); HEMOGLOBIN. 8.4 g/dL (14.0-18.0); MEAN CORPUSCULAR HEMOGLOBIN 29.1 pg (28.0-32.0); MEAN CORPUSCULAR VOLUME 85.6 fL (80.0-94.0); MEAN PLATELET VOLUME 8.2 fl (7.4-10.4); PLATELET 176 x1000/uL (130-400); RED CELL DISTRIBUTION WIDTH 15.8 % (11.6-14.6)
[2024-03-20 06:59] LABS: CREATININE 4.5 mg/dL (0.6-1.3)
[2024-03-20 07:29] LABS: DIFFERENTIAL COMMENT 1
[2024-03-20] MEDS: MINOXIDIL 2.5MG TABLET PO SCH (08:17)
[2024-03-20 13:19] LABS: ANISOCYTOSIS 1+; PLATELET ESTIMATE NORMAL
[2024-03-20] MEDS ORDERED: HYDRALAZINE 20MG/ML VIAL IV PRN (13:30)
[2024-03-20] MEDS: DOCUSATE SODIUM 100MG CAPSULE PO PRN (21:31)
[2024-03-21] VITALS (49 sets, daily range): BP systolic 84–206; BP diastolic 40–89; PULSE 52–105; RESP 20; TEMP 36.114–37.66968; O2SAT 94–100
[2024-03-21 05:27] LABS: POTASSIUM 4.6 mEq/L (3.5-5.1)
[2024-03-21 05:29] LABS: CALCIUM 7.4 mg/dL (8.7-10.4)
[2024-03-21 05:36] LABS: PHOSPHORUS 6.6 mg/dL (2.5-4.9)
[2024-03-21 06:11] LABS: CREATININE 5.7 mg/dL (0.6-1.3)
[2024-03-22] VITALS (74 sets, daily range): BP systolic 75–269; BP diastolic 38–122; PULSE 66–128; RESP 20; TEMP 34.4472–36.9474; O2SAT 93–100
[2024-03-22 05:50] LABS: MEAN CORPUSCULAR HEMOGLOBIN 28.8 pg (28.0-32.0); MEAN CORPUSCULAR HGB CONC 32.8 g/dL (31.0-37.0); MEAN CORPUSCULAR VOLUME 87.7 fL (80.0-94.0); MEAN PLATELET VOLUME 8.3 fl (7.4-10.4); PLATELET 230 x1000/uL (130-400); POTASSIUM 4.7 mEq/L (3.5-5.1); RED BLOOD CELL COUNT 2.26 mill/uL (4.7-6.1); RED CELL DISTRIBUTION WIDTH 15.7 % (11.6-14.6); WHITE BLOOD COUNT 7.7 x1000/uL (4.5-11.0)
[2024-03-22 05:51] LABS: CALCIUM 7.9 mg/dL (8.7-10.4)
[2024-03-22 06:22] LABS: CREATININE 6.6 mg/dL (0.6-1.3)
[2024-03-22 06:52] LABS: HEMATOCRIT. 19.8 % (42.0-52.0); HEMOGLOBIN. 6.5 g/dL (14.0-18.0)
[2024-03-22 06:53] LABS: DIFFERENTIAL COMMENT 1
[2024-03-22 10:42] LABS: PLATELET ESTIMATE NORMAL
[2024-03-22 10:43] LABS: ANISOCYTOSIS 2+
[2024-03-23] VITALS (94 sets, daily range): BP systolic 72–183; BP diastolic 34–62; PULSE 74–116; RESP 19–20; TEMP 37.66968–37.83636; O2SAT 98–100
[2024-03-23] MEDS: HYDROCORTISONE SOD SUCCINATE 100 MG/2 ML VIAL IV SCH (14:55)
[2024-03-23] MEDS: MIDODRINE HCL 5MG TABLET PO SCH (21:36)
[2024-03-24] VITALS (107 sets, daily range): BP systolic 65–231; BP diastolic 39–111; PULSE 64–113; RESP 19–20; TEMP 36.6696–37.11408; O2SAT 98–100
[2024-03-24 12:23] LABS: MEAN CORPUSCULAR HEMOGLOBIN 28.1 pg (28.0-32.0); MEAN CORPUSCULAR HGB CONC 32.2 g/dL (31.0-37.0); MEAN CORPUSCULAR VOLUME 87.3 fL (80.0-94.0); MEAN PLATELET VOLUME 8.4 fl (7.4-10.4); PLATELET 253 x1000/uL (130-400); RED BLOOD CELL COUNT 2.27 mill/uL (4.7-6.1); RED CELL DISTRIBUTION WIDTH 15.4 % (11.6-14.6); WHITE BLOOD COUNT 18.7 x1000/uL (4.5-11.0)
[2024-03-24 12:24] LABS: POTASSIUM 4.2 mEq/L (3.5-5.1)
[2024-03-24 12:25] LABS: CALCIUM 7.8 mg/dL (8.7-10.4)
[2024-03-24 12:41] LABS: CREATININE 7.6 mg/dL (0.6-1.3)
[2024-03-24 12:58] LABS: HEMOGLOBIN. 6.4 g/dL (14.0-18.0)
[2024-03-24 12:59] LABS: DIFFERENTIAL COMMENT 1; HEMATOCRIT. 19.8 % (42.0-52.0)
[2024-03-24 14:16] LABS: PLATELET ESTIMATE NORMAL
[2024-03-24] MEDS ORDERED: CALCIUM GLUCONATE 1GM PREMIX 50 ML IV NR (14:30)
[2024-03-24 23:44] LABS: HEMOGLOBIN 7.7 g/dL (14.0-18.0); MEAN CORPUSCULAR HGB CONC 33.3 g/dL (31.0-37.0); MEAN CORPUSCULAR VOLUME 86.9 fL (80.0-94.0); PLATELET 270 x1000/uL (130-400); RED BLOOD CELL COUNT 2.65 mill/uL (4.7-6.1); RED CELL DISTRIBUTION WIDTH 15.5 % (11.6-14.6); WHITE BLOOD COUNT 21.1 x1000/uL (4.5-11.0)
[2024-03-24 23:47] LABS: CHLORIDE 101 mEq/L (98-107); POTASSIUM 4.2 mEq/L (3.5-5.1); SODIUM 135 mEq/L (136-145)
[2024-03-24 23:48] LABS: CALCIUM 7.9 mg/dL (8.7-10.4); CARBON DIOXIDE 24 mEq/L (21-32)
[2024-03-24 23:53] LABS: GLUCOSE 182 mg/dL (70-105); UREA NITROGEN BLOOD 93 mg/dL (9-23)
[2024-03-24 23:54] LABS: ALANINE AMINOTRANSFERASE 16 IU/L (10-49)
[2024-03-24 23:55] LABS: ALBUMIN 2.6 g/dL (3.2-4.8); ASPARTATE AMINOTRANSFERASE 28 IU/L (<34); BILIRUBIN TOTAL 0.8 mg/dL (0.1-1.0); PROTEIN TOTAL 4.8 g/dL (6.0-8.3)
[2024-03-25] VITALS (119 sets, daily range): BP systolic 38–235; BP diastolic 17–159; PULSE 55–153; RESP 12–22; TEMP 36.89184–37.11408; O2SAT 71–100
[2024-03-25 00:14] LABS: CREATININE 5.6 mg/dL (0.6-1.3)
[2024-03-25 06:05] LABS: HEMOGLOBIN. 7.5 g/dL (14.0-18.0); MEAN CORPUSCULAR HEMOGLOBIN 29.7 pg (28.0-32.0); MEAN CORPUSCULAR HGB CONC 33.9 g/dL (31.0-37.0); MEAN CORPUSCULAR VOLUME 87.4 fL (80.0-94.0); MEAN PLATELET VOLUME 8.4 fl (7.4-10.4); PLATELET 258 x1000/uL (130-400); RED BLOOD CELL COUNT 2.51 mill/uL (4.7-6.1); RED CELL DISTRIBUTION WIDTH 15.6 % (11.6-14.6); WHITE BLOOD COUNT 18.1 x1000/uL (4.5-11.0)
[2024-03-25 06:08] LABS: POTASSIUM 4.4 mEq/L (3.5-5.1)
[2024-03-25 06:39] LABS: CREATININE 6.1 mg/dL (0.6-1.3)
[2024-03-25 06:50] LABS: DIFFERENTIAL COMMENT 1
[2024-03-25 13:43] LABS: BG BASE EXCESS -1.5 mmol/L (-2.0-3.0); BG DEOXYHEMOGLOBIN 2.8 % (0.0-5.0); BG FRACTION INSPIRED OXYGEN 40; BG HCO3 ACT 20.9 mmol/L (21.0-28.0); BG METHEMOGLOBIN 0.3 % (0.5-1.5); BG OXYGEN SATURATION 97.2 % (94.0-98.0); BG OXYHEMOGLOBIN 95.9 % (94.0-98.0); BG PCO2 26.4 mmHg (35.0-48.0); BG PH 7.516 (7.350-7.450); BG PO2 90.6 mmHg (83.0-108.0); BG SAMPLE SITE LEFT RADIAL; BG TOTAL HEMOGLOBIN 8.2 g/dL (13.5-17.5); BG VENT MODE VENT - AC
[2024-03-25 16:03] LABS: BG BASE EXCESS -0.9 mmol/L (-2.0-3.0); BG CARBOXYHEMOGLOBIN 0.9 % (0.5-1.5); BG DEOXYHEMOGLOBIN 3.7 % (0.0-5.0); BG FRACTION INSPIRED OXYGEN 40; BG HCO3 ACT 22.5 mmol/L (21.0-28.0); BG METHEMOGLOBIN 0.3 % (0.5-1.5); BG OXYGEN SATURATION 96.3 % (94.0-98.0); BG OXYHEMOGLOBIN 95.1 % (94.0-98.0); BG PH 7.464 (7.350-7.450); BG SAMPLE SITE RIGHT RADIAL; BG TOTAL HEMOGLOBIN 8.5 g/dL (13.5-17.5); BG VENT MODE VENT - AC
[2024-03-25 16:07] LABS: PLATELET ESTIMATE NORMAL
[2024-03-25 17:38] LABS: BG BASE EXCESS -1.2 mmol/L (-2.0-3.0); BG CARBOXYHEMOGLOBIN 1.1 % (0.5-1.5); BG DEOXYHEMOGLOBIN 5.9 % (0.0-5.0); BG FRACTION INSPIRED OXYGEN 40; BG HCO3 ACT 23.7 mmol/L (21.0-28.0); BG METHEMOGLOBIN 0.3 % (0.5-1.5); BG OXYHEMOGLOBIN 92.7 % (94.0-98.0); BG PCO2 40.5 mmHg (35.0-48.0); BG PH 7.385 (7.350-7.450); BG SAMPLE SITE LEFT RADIAL; BG TOTAL HEMOGLOBIN 7.8 g/dL (13.5-17.5); BG VENT MODE VENT - AC
[2024-03-25 23:18] LABS: BG BASE EXCESS -6.2 mmol/L (-2.0-3.0); BG CARBOXYHEMOGLOBIN 0.1 % (0.5-1.5); BG DEOXYHEMOGLOBIN 2.1 % (0.0-5.0); BG FRACTION INSPIRED OXYGEN 100; BG HCO3 ACT 20.3 mmol/L (21.0-28.0); BG METHEMOGLOBIN 0.3 % (0.5-1.5); BG OXYGEN SATURATION 97.9 % (94.0-98.0); BG OXYHEMOGLOBIN 97.5 % (94.0-98.0); BG PCO2 44.6 mmHg (35.0-48.0); BG PH 7.276 (7.350-7.450); BG PO2 112.5 mmHg (83.0-108.0); BG SAMPLE SITE RIGHT RADIAL; BG TOTAL HEMOGLOBIN 10.6 g/dL (13.5-17.5); BG VENT MODE VENT - AC
[2024-03-26] VITALS (109 sets, daily range): BP systolic 58–203; BP diastolic 30–116; PULSE 0–242; RESP 18–110; TEMP 35.5584–36.89184; O2SAT 78–100
[2024-03-26 00:34] LABS: CHLORIDE 97 mEq/L (98-107); SODIUM 133 mEq/L (136-145)
[2024-03-26 00:35] LABS: CALCIUM 8.7 mg/dL (8.7-10.4); CARBON DIOXIDE 21 mEq/L (21-32)
[2024-03-26 00:40] LABS: GLUCOSE 288 mg/dL (70-105)
[2024-03-26 00:45] LABS: CREATININE 6.5 mg/dL (0.6-1.3); UREA NITROGEN BLOOD 111 mg/dL (9-23)
[2024-03-26 05:39] LABS: HEMATOCRIT. 24.1 % (42.0-52.0); MEAN CORPUSCULAR HEMOGLOBIN 29.4 pg (28.0-32.0); MEAN CORPUSCULAR HGB CONC 33.2 g/dL (31.0-37.0); MEAN CORPUSCULAR VOLUME 88.6 fL (80.0-94.0); MEAN PLATELET VOLUME 9.1 fl (7.4-10.4); PLATELET 293 x1000/uL (130-400); RED BLOOD CELL COUNT 2.72 mill/uL (4.7-6.1); RED CELL DISTRIBUTION WIDTH 15.4 % (11.6-14.6); WHITE BLOOD COUNT 14.5 x1000/uL (4.5-11.0)
[2024-03-26 07:22] LABS: DIFFERENTIAL COMMENT 1
[2024-03-26 08:34] LABS: BG BASE EXCESS -1.7 mmol/L (-2.0-3.0); BG CARBOXYHEMOGLOBIN 0.7 % (0.5-1.5); BG DEOXYHEMOGLOBIN 3.3 % (0.0-5.0); BG FRACTION INSPIRED OXYGEN 80; BG HCO3 ACT 21.8 mmol/L (21.0-28.0); BG METHEMOGLOBIN 0.3 % (0.5-1.5); BG OXYGEN SATURATION 96.7 % (94.0-98.0); BG OXYHEMOGLOBIN 95.7 % (94.0-98.0); BG PCO2 31.9 mmHg (35.0-48.0); BG PH 7.452 (7.350-7.450); BG PO2 86.3 mmHg (83.0-108.0); BG SAMPLE SITE LEFT RADIAL; BG TOTAL HEMOGLOBIN 9.1 g/dL (13.5-17.5); BG VENT MODE VENT - AC
[2024-03-26] MEDS ORDERED: DEXTROSE 50% WATER 50ML SYRINGE IV PRN (09:30)
[2024-03-26 11:45] LABS: POTASSIUM 4.7 mEq/L (3.5-5.1)
[2024-03-26] MEDS: BLOOD SUGAR DIAGNOSTIC STRIP TEST SCH (11:45)
[2024-03-26 11:47] LABS: CALCIUM 8.4 mg/dL (8.7-10.4)
[2024-03-26] MEDS ORDERED: INSULIN LISPRO 100 UNITS/ML SUBCUT SCH (12:00)
[2024-03-26 12:09] LABS: CREATININE 7.1 mg/dL (0.6-1.3)
[2024-03-26 14:04] LABS: BG DEOXYHEMOGLOBIN 3.3 % (0.0-5.0); BG FRACTION INSPIRED OXYGEN 100; BG HCO3 ACT 21.8 mmol/L (21.0-28.0); BG METHEMOGLOBIN 0.3 % (0.5-1.5); BG OXYGEN SATURATION 96.7 % (94.0-98.0); BG OXYHEMOGLOBIN 96.4 % (94.0-98.0); BG PCO2 38.3 mmHg (35.0-48.0); BG PH 7.374 (7.350-7.450); BG PO2 92.1 mmHg (83.0-108.0); BG SAMPLE SITE ALINE; BG TOTAL HEMOGLOBIN 9.9 g/dL (13.5-17.5); BG VENT MODE VENT - AC
[2024-03-26 17:14] LABS: BASOPHILS % 0.5 % (0.0-2.0); EOSINOPHILS % 0.2 % (0.0-5.0); HEMATOCRIT. 25.8 % (42.0-52.0); HEMOGLOBIN. 8.4 g/dL (14.0-18.0); LYMPHOCYTES % 8.9 % (20.0-50.0); MEAN CORPUSCULAR HEMOGLOBIN 29.4 pg (28.0-32.0); MEAN CORPUSCULAR HGB CONC 32.6 g/dL (31.0-37.0); MEAN CORPUSCULAR VOLUME 90.2 fL (80.0-94.0); MEAN PLATELET VOLUME 9.6 fl (7.4-10.4); MONOCYTES % 3.7 % (2.0-8.0); NEUTROPHILS % 86.7 % (40.0-76.0); PLATELET 391 x1000/uL (130-400); RED BLOOD CELL COUNT 2.86 mill/uL (4.7-6.1); RED CELL DISTRIBUTION WIDTH 16.3 % (11.6-14.6); WHITE BLOOD COUNT 11.5 x1000/uL (4.5-11.0)
[2024-03-26 17:20] LABS: CHLORIDE 97 mEq/L (98-107); POTASSIUM 5.5 mEq/L (3.5-5.1); SODIUM 134 mEq/L (136-145)
[2024-03-26 17:21] LABS: CALCIUM 8.5 mg/dL (8.7-10.4); CARBON DIOXIDE 19 mEq/L (21-32)
[2024-03-26 17:26] LABS: GLUCOSE 323 mg/dL (70-105)
[2024-03-26 17:27] LABS: UREA NITROGEN BLOOD 122 mg/dL (9-23)
[2024-03-26 17:28] LABS: CREATININE 7.7 mg/dL (0.6-1.3); DIFFERENTIAL COMMENT 1
[2024-03-26 17:39] LABS: TROPONIN I HIGH SENSITIVITY 964 ng/L (3.0-53)
[2024-03-26 21:24] LABS: PLATELET ESTIMATE NORMAL
== END 2024-03-26 20:37 | DRG 853 ==
LOC: ER 08:13 → EDBEDREQTM 10:05 → EDBEDREQ 10:05 → 5WST 17:18 → 8WST 23:58 → MICUNO 03-11 12:51
PROVIDERS: ADMIT Internal Medicine; ATTEND Internal Medicine
PROC: 5A1955Z Respiratory Ventilation, Greater than 96 Consecutive Hours (ICD-10-PCS; 2024-03-11)
PROC: 0BH17EZ Insertion of Endotracheal Airway into Trachea, Via Natural or Artificial Opening (ICD-10-PCS; 2024-03-11)
PROC: 06HY33Z Insertion of Infusion Device into Lower Vein, Percutaneous Approach (ICD-10-PCS; 2024-03-11)
PROC: B54BZZA Ultrasonography of Right Lower Extremity Veins, Guidance (ICD-10-PCS; 2024-03-11)
PROC: 02HV33Z Insertion of Infusion Device into Superior Vena Cava, Percutaneous Approach (ICD-10-PCS; 2024-03-13)
PROC: B548ZZA Ultrasonography of Superior Vena Cava, Guidance (ICD-10-PCS; 2024-03-13)
PROC: 03HY32Z Insertion of Monitoring Device into Upper Artery, Percutaneous Approach (ICD-10-PCS; 2024-03-13)
PROC: 5A1D70Z Performance of Urinary Filtration, Intermittent, Less than 6 Hours Per Day (ICD-10-PCS; 2024-03-13)
PROC: 009630Z Drainage of Cerebral Ventricle with Drainage Device, Percutaneous Approach (ICD-10-PCS; principal; 2024-03-14)
PROC: 30233N1 Transfusion of Nonautologous Red Blood Cells into Peripheral Vein, Percutaneous Approach (ICD-10-PCS; 2024-03-14)
PROC: 5A1D70Z Performance of Urinary Filtration, Intermittent, Less than 6 Hours Per Day (ICD-10-PCS; 2024-03-14)
PROC: 05H533Z Insertion of Infusion Device into Right Subclavian Vein, Percutaneous Approach (ICD-10-PCS; 2024-03-15)
PROC: B546ZZA Ultrasonography of Right Subclavian Vein, Guidance (ICD-10-PCS; 2024-03-15)
PROC: 5A12012 Performance of Cardiac Output, Single, Manual (ICD-10-PCS; 2024-03-15)
PROC: 5A1D70Z Performance of Urinary Filtration, Intermittent, Less than 6 Hours Per Day (ICD-10-PCS; 2024-03-16)
PROC: 5A1D70Z Performance of Urinary Filtration, Intermittent, Less than 6 Hours Per Day (ICD-10-PCS; 2024-03-18)
PROC: 5A1D70Z Performance of Urinary Filtration, Intermittent, Less than 6 Hours Per Day (ICD-10-PCS; 2024-03-22)
PROC: 5A1D70Z Performance of Urinary Filtration, Intermittent, Less than 6 Hours Per Day (ICD-10-PCS; 2024-03-24)
PROC: 5A12012 Performance of Cardiac Output, Single, Manual (ICD-10-PCS; 2024-03-25)
PROC: 5A12012 Performance of Cardiac Output, Single, Manual (ICD-10-PCS; 2024-03-26)
DX: A41.4 Sepsis due to anaerobes (principal); G93.41 Metabolic encephalopathy; J96.22 Acute and chronic respiratory failure with hypercapnia; J69.0 Pneumonitis due to inhalation of food and vomit; I61.5 Nontraumatic intracerebral hemorrhage, intraventricular; N17.0 Acute kidney failure with tubular necrosis; G93.5 Compression of brain; J96.21 Acute and chronic respiratory failure with hypoxia; I21.4 Non-ST elevation (NSTEMI) myocardial infarction; R65.21 Severe sepsis with septic shock; N18.6 End stage renal disease; J15.8 Pneumonia due to other specified bacteria; R40.20 Unspecified coma; I63.89 Other cerebral infarction; J44.1 Chronic obstructive pulmonary disease with (acute) exacerbation; E87.20 Acidosis, unspecified; I47.20 Ventricular tachycardia, unspecified; J44.0 Chronic obstructive pulmonary disease with (acute) lower respiratory infection; I44.2 Atrioventricular block, complete; G91.9 Hydrocephalus, unspecified; I12.0 Hypertensive chronic kidney disease with stage 5 chronic kidney disease or end stage renal disease; Z20.822 Contact with and (suspected) exposure to COVID-19; I46.9 Cardiac arrest, cause unspecified; E83.41 Hypermagnesemia; E87.5 Hyperkalemia; I44.1 Atrioventricular block, second degree; D63.8 Anemia in other chronic diseases classified elsewhere; R40.2430 Glasgow coma scale score 3-8, unspecified time; R00.1 Bradycardia, unspecified; E83.39 Other disorders of phosphorus metabolism; R73.9 Hyperglycemia, unspecified; F20.9 Schizophrenia, unspecified; I48.91 Unspecified atrial fibrillation; N28.9 Disorder of kidney and ureter, unspecified; F03.90 Unspecified dementia, unspecified severity, without behavioral disturbance, psychotic disturbance, mood disturbance, and anxiety; Z98.2 Presence of cerebrospinal fluid drainage device; Z99.2 Dependence on renal dialysis; Z99.81 Dependence on supplemental oxygen
CPT/HCPCS: 31500; 36415; 36556; 36573; 36600; 71045; 76770; 76937; 78610; 80048; 80053; 80061; 80202; 81003; 82375; 82607; 82728; 82746; 82805; 82962; 83036; 83540; 83550; 83605; 83735; 83880; 84100; 84132; 84145; 84439; 84443; 84478; 84484; 85014; 85018; 85025; 85027; 85379; 86078; 86705; 86709; 86850; 86900; 86920; 87070; 87340; 87420; 90935; 93005; 93306; 93970; 94002; 94003; 94640; 99291; A9512; C1725; C1752; J0282; J0461; J0610; J0690; J0696; J1100; J1265; J1644; J1650; J1720; J1815; J1940; J1953; J2060; J2185; J2270; J2470; J2704; J2919; J3010; J3370; J3475; J3490; J7030; J7050; J7060; J7070; J7120; J7131; J7608; J7626; P9016; A5200